=== PATIENT | male | born 1980 | race Caucasian/White ===

== ENCOUNTER 2018-08-13 15:23 | Emergency (ER) | payer OTHER ==
[~2018-08-13 15:23] MED LIST: AMAN100C12 PO; FOLI1 PO; METO25 PO; MULT-952 PO; OLAN10TA3 PO; PALI234D IM; PARO20TA24 PO
== END 2018-08-13 16:42 | disposition left against medical advice (07) ==
LOC: EMS 15:24
DX: Z00.00 Encounter for general adult medical examination without abnormal findings (principal); Z53.21 Procedure and treatment not carried out due to patient leaving prior to being seen by health care provider

== ENCOUNTER 2018-09-07 20:41 | Emergency (ER) | payer OTHER ==
[~2018-09-07] VITALS: Ht 167.6 cm; Wt 70.9 kg
[2018-09-07 20:48] VITALS: BP 136/51
== END 2018-09-08 00:31 | disposition left against medical advice (07) ==
LOC: EMS 20:42
DX: R07.89 Other chest pain (principal); F12.90 Cannabis use, unspecified, uncomplicated; F20.9 Schizophrenia, unspecified; F17.210 Nicotine dependence, cigarettes, uncomplicated; F19.90 Other psychoactive substance use, unspecified, uncomplicated; Z53.21 Procedure and treatment not carried out due to patient leaving prior to being seen by health care provider
CPT/HCPCS: 93005